=== PATIENT | male | born 1960 | race Two or more races ===

== ENCOUNTER 2024-07-01 09:14 | Emergency (ER) | payer BC, SELFPAY ==
--- NOTE | 2024-07-01 09:32 | XR_ITS ---
Examination: CT brain head without contrast. 2-D sagittal coronal reconstructions Date and time of exam:July 01, 2024 0943 hours INDICATIONS: Onset generalized head pain dizziness vertigo today CTDI: vol (mGy):40.9 DLP: (mGycm):1029 Technique: Multiple CT axial sections of the brain have been obtained, 5 mm slice thickness. Contrast has not been administered. 2-D sagittal, coronal reconstructions have been obtained Low dose protocols were performed. One or more of the following dose reduction techniques were used; automated exposure control, adjustment of the mA and/or KV according to patient size, use of iterative reconstruction technique. Findings: No significant ventricular enlargement. Intra-axial or extra-axial hemorrhage density is not seen. No mass effect or midline shift Basal cisterns are not remarkable. Fourth ventricle is midline. Cranial vault intact. Acute left maxillary sinusitis Impression: Negative for acute hemorrhage, mass effect or midline shift As clinically warranted, brain MRI follow-up would best assess for acute ischemic change
--- NOTE | 2024-07-01 09:32 | PD.EDRME ---
Rapid Medical Screening Exam RME Arrival date/time: 07/01/24 09:14 64-year-old male presents to the emergency department complains of headache and shoulder pain radiating down his left arm Chief Complaint: General Adult/Misc Complain Time Seen by Provider: 07/01/24 09:20
[2024-07-01 09:38] VITALS: BP 149/96; PULSE 65; RESP 15; TEMP 36.4; O2SAT 96; BMI 34.3
[2024-07-01 10:28] LABS: Basophils # (Auto) 0.1 Thou/mm3 (0.0-0.2); Basophils % (Auto) 1 % (0-2.5); Eosinophils # (Auto) 0.3 Thou/mm3 (0.0-0.5); Eosinophils % (Auto) 3 % (0-10); Hematocrit 47.6 % (41.0-53.0); Hemoglobin 15.9 g/dL (13.5-16.0); Immature Granulocytes % (Auto) 0 % (0-0); Immature Granulocytes Auto 0.03 Thou/mm3 (0.00-0.00); Lymphocytes # (Auto) 2.6 Thou/mm3 (1.0-4.8); Lymphocytes % (Auto) 34 % (10-50); Mean Corpuscular HGB Conc 33.4 g/dl (31.0-37.0); Mean Corpuscular Hemoglobin 29.2 pg (25.0-35.0); Mean Corpuscular Volume 88 fL (80-100); Monocytes # (Auto) 0.5 Thou/mm3 (0.0-0.8); Monocytes % (Auto) 6 % (0-12); Neutrophils # (Auto) 4.2 Thou/mm3 (1.8-7.7); Neutrophils % (Auto) 56 % (37-80); Nucleated Red Blood Cell % 0 /100 WBC (0); Platelet Count 218 Thou/mm3 (140-440); RDW Standard Deviation 39.3 fL (35.1-43.9); Red Blood Count 5.44 Miln/mm3 (4.50-5.90); White Blood Count 7.6 Thou/mm3 (3.8-10.6)
[2024-07-01 10:52] LABS: Alanine Aminotransferase 37 U/L (10-49); Albumin, Serum 4.8 gm/dL (3.4-4.8); Albumin/Globulin Ratio 1.9 (1.2-2.2); Alkaline Phosphatase 92 U/L (46-116); Anion Gap 4 (7-16); Aspartate Amino Transferase 43 U/L (0-34); BUN/Creatinine Ratio 11 Ratio (12-20); Bilirubin,Total 0.8 mg/dL (0.3-1.2); Blood Urea Nitrogen 12 mg/dL (9-23); Calcium 9.8 mg/dL (8.3-10.6); Calcium (Corrected) 9.8 mg/dL (8.5-10.1); Carbon Dioxide 27.5 mMol/L (20.0-31.0); Chloride 107 mMol/L (98-107); Creatinine (Component) 1.1 mg/dL (0.6-1.3); Estimated Creatinine Clearance 87.4 mL/min (>60); Globulin 2.5 gm/dL (2.3-3.5); Glucose 105 mg/dL (74-106); Osmolality,Calculated 275 (275-295); Potassium 4.9 mMol/L (3.4-5.1); Sodium 138 mMol/L (136-145); Total Protein 7.3 gm/dL (5.7-8.2); eGFR > 60 See Note
--- NOTE | 2024-07-01 11:38 | PD.EDADULT ---
ED General RME/HPI General Chief complaint: General Adult/Misc Complain Stated complaint: LEFT ARM PAIN x 1 WK, RIGHT SIDE HEAD PAIN x2 WKS Time Seen by Provider: 07/01/24 09:20 Arrival date/time: 07/01/24 09:14 RME / HPI RME / HPI narrative: 07/01/24 09:14 64-year-old male presents to the emergency department complains of headache and shoulder pain radiating down his left arm This section includes all my notes and documentations, including HPI, PE, and ED course.? Gary Ellsworth MD HPI: 64 year old male with history of hypertension presents to the ED for evaluation of pain to his left shoulder beginning 2 weeks ago. Described as aching in sensation, rated as moderate, that is aggravated with movements. Accompanied by a numbness sensation to the left arm beginning this morning. Patient additionally complains of pain to his head, just above the right eyebrow, that is aggravated with chewing or opening his jaw. Denies any history of similar shoulder or head pain. Denies any recent injury, falls. trauma. No other complaints. ROS: All negative except as documented in HPI. Physical Exam: General:? Alert and oriented.? No acute distress when remaining still.?? Eyes:? Conjunctivae and lids clear.? EOMI. PERRL. ENT:? No nasal congestion.? Pharynx normal. TM normal bilaterally. Neck:? Supple.? No carotid bruit. No JVD. Heart:? RRR.? Lungs:? No respiratory distress.? Good air movement.? No rhonchi, wheezing, rales.?? Abdomen:? Soft and nontender.?? Legs:? No clubbing, cyanosis, edema.? Skin:? Warm and dry.?? Neuro:? Alert and oriented X 3.?? Left Shoulder: Equivocal tenderness. Limited range of motion due to pain. I reviewed all diagnostic test results. My interpretation of the left shoulder x-rays is no acute fracture. My review of the head CT report is?no acute findings. Blood tests unremarkable. At this point, diagnoses include?left rotator cuff tear and headache. Treatment here included?ibuprofen and two Tylenol #3 and sling. Significant improvement noted. Recommended more outpatient care. Based on my best medical judgment, made decision no further evaluation or treatment indicated at this time.? Patient understands and agrees to the discharge instructions customized and printed, see below. Discharge Instructions from Dr. Ellsworth printed for you: 1. After extensive evaluation, there is no life-threatening condition. Such as stroke or brain tumor. 2. Your left shoulder pain is due to rotator cuff muscle tear, see attached handout. For help needed to heal, wear the arm sling for a week then as needed. Apply ice or heat if helpful. Ibuprofen 800 mg every 6-8 hours today and tomorrow to decrease inflammation then as needed. Tylenol with codeine for severe pain. 3. Exact cause of your headache worse with chewing was not determined. Avoid talking and eat soft foods for 3 days. 4. See a private doctor on 07/04/2024 for recheck and further care. Ask to review all test results and official radiology reports, to make sure you receive all necessary follow-ups and monitoring. Ask for help with more care not available here for your left rotator cuff tear. Such as MRI and referral to see specialist. If severe, you may need surgery. And ask for help to find the cause and treatment of your headache. 5. Seek immediate medical care with worsening or with any concerns. Instrucciones de alexandra del Dr. Ellsworth impresas para usted: 1. Despu?s de gilberto evaluaci?n exhaustiva, no hay ninguna afecci?n que ponga en peligro hwang sheridan, kevin un derrame cerebral o un tumor cerebral. 2. Hwang dolor en el hombro sejal se debe a un desgarro del m?sculo del manguito rotador; consulte el folleto adjunto. Para obtener ayuda para sanar, use el cabestrillo peyton gilberto semana y luego seg?n sea necesario. Aplique hielo o calor si resulta ?til. Ibuprofeno 800 mg cada 6 a 8 horas hoy y ma? para disminuir la inflamaci?n y luego seg?n sea necesario. Tylenol con code?na para el dolor intenso. 3. No se determin? la causa exacta de hwang dolor de yumiko que empeoraba al masticar. Evite hablar y coma alimentos blandos peyton 3 d?as. 4. Visite a un m?dico privado el 04/07/2024 para volver a controlarlo y recibir m?s atenci?n. Pida que revisen todos los resultados de las pruebas y los informes radiol?gicos oficiales para asegurarse de recibir todos los seguimientos y controles necesarios. Pida ayuda con m?s atenci?n que no est? disponible aqu? para hwang desgarro del manguito rotador sejal, kevin gilberto resonancia magn?shea y gilberto derivaci?n a un especialista. Si es grave, es posible que necesites cirug?a. Y pide ayuda para encontrar la causa y el tratamiento de tu dolor de yumiko. 5. Busca atenci?n m?dica inmediata si el dolor empeora o si tienes alguna inquietud. Related Data Home Medications ?Medication ?Instructions ?Recorded ?Confirmed lisinopril 20 mg tablet 20 mg PO QDAY 06/28/19 04/04/21 omega-3 fatty acids 500 mg capsule 500 mg PO QDAY 04/04/21 04/04/21 Previous Rx's ?Medication ?Instructions ?Recorded acetaminophen 300 mg-codeine 30 mg 2 tab PO TID PRN pain #20 tabs 07/01/24 tablet acetaminophen 300 mg-codeine 30 mg 2 tab PO TID PRN pain #20 tabs 07/01/24 tablet ibuprofen 800 mg tablet 800 mg PO Q8H PRN pain #30 tabs 07/01/24 Allergies Allergy/AdvReac Type Severity Reaction Status Date / Time No Known Allergies Allergy Verified 07/01/24 09:19 Review of Systems Review of Systems Systems Reviewed: All systems reviewed, normal except as documented Past Medical History Past Medical History CARDIAC: Positive Cardiac Disorders and Hypertension ENT: Positive Cataracts OTHER HISTORY: Positive Shingles and Measles Family History FAMILY HISTORY: Positive Family Cardiac Disorders (FATHER (CVA),MOTHER (HTN)) and Family Cancer (FATHER (PROSTATE)) Surgical History SURGICAL: Positive Nose Surgery; Negative Cardiac Surgery, Pacemaker, Endocrine Surgery or Abdominal Surgery Social History SMOKING STATUS: Heavy (> 1 pack/day) ED Exam Narrative Physical exam: As noted in HPI Course Quality Measures none Orders Category Date Time Status sling [Splint / Immobilizer] STAT Care 07/01/24 11:[address] head/brain wo con Stat Exams 07/01/24 09:32 Completed XR shoulder LT min 2V Stat Exams 07/01/24 11:41 Completed CBC Stat Lab 07/01/24 10:03 Completed CMP [Comprehensive Metabolic Panel] Stat Lab 07/01/24 10:03 Completed ACETAMINOPHEN w/COD 300-30 [Tylenol w/Cod #3] Med 07/01/24 11:41 Discontinued 2 tab PO X1 ONE Ibuprofen Tab [Motrin Tab] Med 07/01/24 11:41 Discontinued 800 mg PO X1 ONE Vital Signs Vital signs: Vital Signs Temperature 97.6 F 07/01/24 09:38 Pulse Rate 65 07/01/24 09:38 Respiratory Rate 15 07/01/24 09:38 Blood Pressure 149/96 H 07/01/24 09:38 Pulse Oximetry (%) 96 07/01/24 09:38 Oxygen Delivery Method Room Air 07/01/24 09:38 Pulse ox is 96% on room air which is adequate. [facility] Patient data External records reviewed:: [facility] previous records (I reviewed H&P on 04/04/2021) Clinical information provided by:: patient and spouse Social determinants that could affect healthcare access:: none Patient has the following chronic illnesses:: Hypertension How is presenting disease/condition affected by chronic disease/condition?: uneffected by Evaluation data The following diagnostics were reviewed and interpreted by me:: lab results and radiology exam(s) Lab and/or radiology exams considered but not ordered:: None Interpretation Summary: Left rotator cuff tear and headache. Medications Medications considered but not ordered:: None Medication administrations:: Medication Administration History Discontinued Medications Acetaminophen/Codeine Phosphate (Acetaminophen W/Cod 300-30 Tablet) 2 tab PO X1 ONE Stop: 07/01/24 11:42 Last Admin: 07/01/24 12:17 Dose: 2 tab Documented By: ED Ibuprofen (Ibuprofen Tab 400 Mg Tablet) 800 mg PO X1 ONE Stop: 07/01/24 11:42 Last Admin: 07/01/24 12:16 Dose: 800 mg Documented By: ED Patient given Tylenol with codeine and Ibuprofen Consultations Consultation(s) initiated? (list below): No Diagnosis Differential Diagnosis ED Complaint MDM: Rotator cuff tear, shoulder dislocation, headache, ICH, CVA Most likely diagnosis given after review of the tests above:: Left rotator cuff tear Headache Admission Indicated Admission indicated?: not indicated Explain why admission is indicated or not indicated:: Symptoms improved, does not meet admission criteria Admission Request Was there a request for admission?: No Disposition Plan Disposition Plan: Discharge Discharge Attestation Discharge Attestation: The patient and all family members were given an opportunity to ask questions and understood the discharge instructions. Discharge instructions specifically effects, indications for sooner follow up or return to the emergency department, and the expected course of current diagnosis. Patient condition: Stable Medical Decision Making Differential Diagnosis Differential Diagnosis: Rotator cuff tear, shoulder dislocation, headache, ICH, CVA Lab Data 07/01/24 10:03 07/01/24 10:03 Labs: Lab Results 07/01/24 Range/Units 10:03 WBC 7.6 (3.8-10.6) Thou/mm3 RBC 5.44 (4.50-5.90) Miln/mm3 Hgb 15.9 (13.5-16.0) g/dL Hct 47.6 (41.0-53.0) % MCV 88 (80-100) fL MCH 29.2 (25.0-35.0) pg MCHC 33.4 (31.0-37.0) g/dl RDW Std Deviation 39.3 (35.1-43.9) fL Plt Count 218 (140-440) Thou/mm3 Neut % (Auto) 56 (37-80) % Lymph % (Auto) 34 (10-50) % Hays % (Auto) 6 (0-12) % Eos % (Auto) 3 (0-10) % Baso % (Auto) 1 (0-2.5) % Neut # (Auto) 4.2 (1.8-7.7) Thou/mm3 Lymph # (Auto) 2.6 (1.0-4.8) Thou/mm3 Hays # (Auto) 0.5 (0.0-0.8) Thou/mm3 Eos # (Auto) 0.3 (0.0-0.5) Thou/mm3 Baso # (Auto) 0.1 (0.0-0.2) Thou/mm3 Immature Gran # (Auto) 0.03 H (0.00-0.00) Thou/mm3 Absolute Nucleated RBC 0.00 (0.00-0.00) Thou/mm3 Immature Gran % 0 (0-0) % Nucleated RBC % 0 (0) /100 WBC Sodium 138 (136-145) mMol/L Potassium 4.9 (3.4-5.1) mMol/L Chloride 107 (98-107) mMol/L Carbon Dioxide 27.5 (20.0-31.0) mMol/L Anion Gap 4 L (7-16) BUN 12 (9-23) mg/dL Creatinine 1.1 (0.6-1.3) mg/dL Estim Creat Clear Calc 87.4 (>60) mL/min eGFR > 60 (60 - ) See Note BUN/Creatinine Ratio 11 L (12-20) Ratio Glucose 105 (74-106) mg/dL Calculated Osmolality 275 (275-295) Calcium 9.8 (8.3-10.6) mg/dL Corrected Calcium 9.8 (8.5-10.1) mg/dL Total Bilirubin 0.8 (0.3-1.2) mg/dL AST 43 H (0-34) U/L ALT 37 (10-49) U/L Alkaline Phosphatase 92 (46-116) U/L Total Protein 7.3 (5.7-8.2) gm/dL Albumin 4.8 (3.4-4.8) gm/dL Globulin 2.5 (2.3-3.5) gm/dL Albumin/Globulin Ratio 1.9 (1.2-2.2) Discharge Plan Plan Patient Disposition: HOME (Self Care) Prescriptions/Referrals Prescriptions/Med Rec: New ibuprofen 800 mg tablet 800 mg PO Q8H PRN (Reason: pain) Qty: 30 0RF acetaminophen-codeine 300-30 mg tablet 2 tab PO TID MDD 6 PRN (Reason: pain) Qty: 20 0RF acetaminophen-codeine 300-30 mg tablet 2 tab PO TID MDD 6 PRN (Reason: pain) Qty: 20 0RF No Action lisinopril 20 mg Tablet 20 mg PO QDAY omega-3 fatty acids 500 mg Capsule 500 mg PO QDAY Referrals: Saman Donahue MD [Primary Care Provider] - In 1 week Problem List Clinical Impression: Left rotator cuff tear, Headache Patient/Caregiver Discharge Instructions Education Materials: ED Rotator Cuff Tear Additional Instructions: Discharge Instructions from Dr. Ellsworth printed for you: 1. After extensive evaluation, there is no life-threatening condition. Such as stroke or brain tumor. 2. Your left shoulder pain is due to rotator cuff muscle tear, see attached handout. For help needed to heal, wear the arm sling for a week then as needed. Apply ice or heat if helpful. Ibuprofen 800 mg every 6-8 hours today and tomorrow to decrease inflammation then as needed. Tylenol with codeine for severe pain. 3. Exact cause of your headache worse with chewing was not determined. Avoid talking and eat soft foods for 3 days. 4. See a private doctor on 07/04/2024 for recheck and further care. Ask to review all test results and official radiology reports, to make sure you receive all necessary follow-ups and monitoring. Ask for help with more care not available here for your left rotator cuff tear. Such as MRI and referral to see specialist. If severe, you may need surgery. And ask for help to find the cause and treatment of your headache. 5. Seek immediate medical care with worsening or with any concerns. Instrucciones de alexandra del Dr. Ellsworth impresas para usted: 1. Despu?s de gilberto evaluaci?n exhaustiva, no hay ninguna afecci?n que ponga en peligro hwang sheridan, kevin un derrame cerebral o un tumor cerebral. 2. Hwang dolor en el hombro sejal se debe a un desgarro del m?sculo del manguito rotador; consulte el folleto adjunto. Para obtener ayuda para sanar, use el cabestrillo peyton gilberto semana y luego seg?n sea necesario. Aplique hielo o calor si resulta ?til. Ibuprofeno 800 mg cada 6 a 8 horas hoy y ma? para disminuir la inflamaci?n y luego seg?n sea necesario. Tylenol con code?na para el dolor intenso. 3. No se determin? la causa exacta de hwang dolor de yumiko que empeoraba al masticar. Evite hablar y coma alimentos blandos peyton 3 d?as. 4. Visite a un m?dico privado el 04/07/2024 para volver a controlarlo y recibir m?s atenci?n. Pida que revisen todos los resultados de las pruebas y los informes radiol?gicos oficiales para asegurarse de recibir todos los seguimientos y controles necesarios. Pida ayuda con m?s atenci?n que no est? disponible aqu? para hwang desgarro del manguito rotador sejal, kevin gilberto resonancia magn?shea y gilberto derivaci?n a un especialista. Si es grave, es posible que necesites cirug?a. Y pide ayuda para encontrar la causa y el tratamiento de tu dolor de yumiko. 5. Busca atenci?n m?dica inmediata si el dolor empeora o si tienes alguna inquietud. Print Language: Lao Stand Alone Forms: [facility] Award Info., Patient Portal Info Letter
--- NOTE | 2024-07-01 11:41 | XR_ITS ---
Examination: Shoulder,left, 3 views Technique: Shoulder AP internal rotation, AP external rotation, Y view shoulder, 3 views Exam date and time :July 01, 1999 2550 hours INDICATIONS: Shoulder pain beginning 2 weeks ago. FINDINGS: Moderate osteopenia Moderate narrowing glenohumeral joint No shoulder fracture or dislocation Moderate osteoarthritis acromioclavicular joint IMPRESSION: Moderate narrowing glenohumeral joint Moderate osteoarthritis acromioclavicular joint
[2024-07-01] MEDS: IBUPROFEN TAB 400 MG TABLET 800 MG PO (12:16)
[2024-07-01] MEDS: ACETAMINOPHEN w/COD 300-30 TABLET 2 TAB PO (12:17)
== END 2024-07-01 13:03 | disposition home or self-care (01) ==
PROVIDERS: Nurse Practitioner Primary Care; Emergency Provider Emergency Medicine; PCP Family Medicine
DX: M75.102 Unspecified rotator cuff tear or rupture of left shoulder, not specified as traumatic (principal); R51.9 Headache, unspecified; R42 Dizziness and giddiness
CPT/HCPCS: 36415; 70450; 73030; 80053; 85025; 99284; A4565; A9270

== ENCOUNTER 2024-12-21 06:45 | Emergency (ER) | payer BC, SELFPAY ==
[2024-12-21 06:46] VITALS: BP 143/102; PULSE 100; RESP 17; TEMP 36.7; O2SAT 97
--- NOTE | 2024-12-21 07:02 | EDNOTE_ITS ---
<Statement entered by Magali Mason MD - 12/30/24 19:27> As co-signing physician, I was present and available for consult prn. I concur with the plan and care as documented by the midlevel provider. ED Back Injury Pain RME/HPI General Chief Complaint: Back Pain/Injury Stated Complaint: LOWER BACK PAIN Time Seen by Provider: 12/21/24 06:55 Source: patient Arrival date/time: 12/21/24 06:45 64-year-old male with no known medical history presents to the emergency room with a chief complaint of pain to his coccyx and lower back after a ground-level fall that occurred 2 days ago Mode of arrival: ambulatory Limitations: no limitations Related Data Home Medications ?Medication ?Instructions ?Recorded ?Confirmed lisinopril 20 mg tablet 20 mg PO QDAY 06/28/1904/04 omega-3 fatty acids 500 mg capsule 500 mg PO QDAY 03/2204/04/21 Previous Rx's ?Medication ?Instructions ?Recorded acetaminophen 300 mg-codeine 30 mg 2 tab PO TID PRN pa in #20 tabs 07/01/24 tablet acetaminophen 300 mg-codeine 30 mg 2 tab PO TID PRN pa in #20 tabs 07/01/24 tablet ibuprofen 800 mg tablet 800 mg PO Q8H PRN pain #30 t abs 07/01/24 Allergies Allergy/AdvReac Type Severity Reaction Status Date / Time No Known Allergies Allergy Verified 07/01/24 09:19 Review of Systems Review of Systems Systems Reviewed: All systems reviewed, normal except as documented Constitutional Constitutional: Reports system reviewed and no additional complaints, except as documented, Denies fatigue, Denies fever(s), Denies headache(s) and Denies weakness Eyes Eyes: Reports system reviewed and no additional complaints, except as documented, Denies blurry vision and Denies change in vision ENT Ears, Nose, Mouth, and Throat: Reports system reviewed and no additional complaints, except as documented, Denies otalgia, Denies headache(s), Denies nasal congestion, Denies throat swelling and Denies vertigo Cardiovascular Cardiovascular: Reports system reviewed and no additional complaints, except as documented, Denies chest pain, Denies dyspnea and Denies dyspnea on exertion Respiratory Respiratory: Reports system reviewed and no additional complaints, except as documented, Denies chest congestion, Denies cough, Denies dyspnea, Denies dyspnea on exertion and Denies wheezing Gastrointestinal Gastrointestinal: Reports system reviewed and no additional complaints, except as documented, Denies abdominal pain, Denies cramping, Denies nausea and Denies vomiting Genitourinary Genitourinary: Reports system reviewed and no additional complaints, except as documented, Denies dysuria and Denies hematuria Musculoskeletal Musculoskeletal: Reports system reviewed and no additional complaints, except as documented and Reports back pain Integumentary/Breasts Skin/Breast: Reports system reviewed and no additional complaints, except as documented and Denies wounds Neurologic Neurologic: Reports system reviewed and no additional complaints, except as documented, Denies confusion, Denies headache(s), Denies lack of coordination, Denies vertigo and Denies weakness Psychiatric Psychiatric: Reports system reviewed and no additional complaints, except as documented, Denies anxiety, Denies confusion, Denies depression, Denies paranoia, Denies suicidal ideation and Denies tactile hallucinations Endocrine Endocrine: Reports system reviewed and no additional complaints, except as documented and Denies fatigue Hematologic/Lymphatic Hematologic/Lymphatic: Reports system reviewed and no additional complaints, except as documented and Denies lymphadenopathy Allergic/Immunologic Allergic/Immunologic: Reports system reviewed and no additional complaints, except as documented, Denies throat swelling, Denies urticaria and Denies wheezing Past Medical History Past Medical History NEUROLOGIC: Negative Neurological Disorders or Seizures CARDIAC: Positive Cardiac Disorders and Hypertension; Negative Congestive Heart Failure, Edema or Cellulitis RESPIRATORY: Negative Chronic Obstructive Pulmonary Disease (COPD), Pneumonia, Tuberculosis or Sleep Apnea GASTROINTESTINAL: Negative Gastrointestinal Disorders or Hepatitis GENITOURINARY: Negative Genitourinary Disorders or Renal Disease MUSCULOSKELETAL: Negative Musculoskeletal Disorders ENT: Positive Cataracts ENDOCRINE: Negative Endocrine Disorders, Diabetes Mellitus Type 1 or Diabetes Mellitus Type 2 HEMATOLOGIC: Negative Blood Disorders OTHER HISTORY: Positive Shingles and Measles; Negative Hospitalization, Autoimmune Disease, Falls, Blood Transfusions, Blood Transfusion Reaction, Anesthesia Reactions, Chemotherapy, Radiation Therapy, MRSA, Chicken Pox, Mumps or Cancer Family History FAMILY HISTORY: Positive Family Cardiac Disorders (FATHER (CVA),MOTHER (HTN)) and Family Cancer (FATHER (PROSTATE)); Negative Family Psychiatric Problems, Family Respiratory Disorders, Family Gastrointestinal Problems, Family Surgery or Family Anesthesia Reaction Surgical History SURGICAL: Positive Nose Surgery; Negative Cardiac Surgery, Pacemaker, Endocrine Surgery or Abdominal Surgery Social History SMOKING STATUS: Never smoker ED Exam General Limitations: Present no limitations General appearance: Present alert and in no apparent distress Head Head exam: Present atraumatic Eye Eye exam: Present normal appearance, PERRL and EOMI ENT ENT exam: Present normal exam, normal oropharynx and mucous membranes moist Neck Neck exam: Present normal inspection, full ROM and trachea midline Chest Chest inspection: Present normal inspection and symmetric chest wall rise Respiratory Respiratory exam: Present normal lung sounds bilaterally Cardiovascular Cardiovascular exam: Present regular rate, normal rhythm and normal heart sounds Abdominal Exam Abdominal exam: Present soft and normal bowel sounds Extremities Exam Extremities exam: Present normal inspection and full ROM Back Exam Back exam: Present normal inspection and full ROM Neurological Exam Neurological exam: Present alert, oriented X3 and CN II-XII intact Psychiatric Psychiatric exam: Present normal affect and normal mood Skin Skin exam: Present warm, dry, intact and normal color Course Quality Measures none Orders Category Date Time Status XR lumbar spine 2-3V Stat Exams 12/21/24 07:02 Completed XR sacrum coccyx min 2V Stat Exams 12/21/24 07:02 Completed HYDROcodone*/APAP 5/325 [[place] 5/325] Med 12/21/24 08:36 Discontinued 1 tab PO X1 ONE Ketorolac Inj [Toradol Inj] Med 12/21/24 07:02 Discontinued 30 mg IM X1 ONE Vital Signs Vital signs: Vital Signs Temperature 98.0 F 12/21/24 06:46 Pulse Rate 100 12/21/24 06:46 Respiratory Rate 17 12/21/24 06:46 Blood Pressure 143/102 H 12/21/24 06:46 Pulse Oximetry (%) 97 12/21/24 06:46 Back Pain / Injury MDM Narrative MDM Narrative:: 64-year-old male with no known medical history presents to the emergency room with a chief complaint of pain to his coccyx and lower back after a ground-level fall that occurred 2 days ago Patient is hemodynamically stable and in no apparent distress Physical examination shows tenderness and pain to the sacrum and coccyx area of the patient's tailbone. Patient states he has difficulty walking and pain and tenderness when he sits X-ray were completed and were negative for any acute fractures Patient was discharged and educated to follow-up with primary care provider in the next 24 to 48 hours and return to the emergency room for any evidence of worsening signs or symptoms Patient data External records reviewed:: [facility] previous records Clinical information provided by:: patient Social determinants that could affect healthcare access:: none Patient has the following chronic illnesses:: No chronic illness How is presenting disease/condition affected by chronic disease/condition?: no chronic disease Evaluation data The following diagnostics were reviewed and interpreted by me:: lab results and radiology exam(s) Lab and/or radiology exams considered but not ordered:: Labs and radiology exams considered and ordered Interpretation Summary: Coccyx x-ray- Medications / Prescriptions Medications or Prescriptions considered but not ordered:: Medication given Medication administrations:: Medication Administration History Discontinued Medications Hydrocodone Bitart/Acetaminophen (Hydrocodone/Apap 5/325 Tablet) 1 tab PO X1 ON E Stop: 12/21/24 08:37 Last Admin: 12/21/24 08:44 Dose: 1 tab Documented By: GM Ketorolac Tromethamine (Ketorolac Inj 60 Mg/2 Ml Vial) 30 mg IM X1 ONE Stop: 12/21/24 07:03 Last Admin: 12/21/24 07:09 Dose: 30 mg Documented By: CVL Medication given Consultations Consultation(s) initiated? (list below): No Diagnosis Differential diagnosis back pain/injury: strain of lumbar region and other (Strain of coccyx region) Most likely diagnosis given after review of the tests above:: Strain of coccyx region Admission Indicated Admission indicated?: not indicated Admission Request Was there a request for admission?: No Disposition Plan Disposition Plan: Discharge Discharge Attestation Discharge Attestation: The patient and all family members were given an opportunity to ask questions and understood the discharge instructions. Discharge instructions specifically effects, indications for sooner follow up or return to the emergency department, and the expected course of current diagnosis. Patient condition: Stable Discharge Plan Plan Patient Disposition: HOME (Self Care) Discharge Disposition comment: Stable Prescriptions/Referrals Prescriptions/Med Rec: No Action lisinopril 20 mg Tablet 20 mg PO QDAY omega-3 fatty acids 500 mg Capsule 500 mg PO QDAY ibuprofen 800 mg tablet 800 mg PO Q8H PRN (Reason: pain) Qty: 30 0RF acetaminophen-codeine 300-30 mg tablet 2 tab PO TID MDD 6 PRN (Reason: pain) Qty: 20 0RF acetaminophen-codeine 300-30 mg tablet 2 tab PO TID MDD 6 PRN (Reason: pain) Qty: 20 0RF Referrals: Saman Donahue MD [Primary Care Provider] - In 1 week Problem List Clinical Impression: Coccyx sprain Patient/Caregiver Discharge Instructions Education Materials: ED Back Sprain/Strain Additional Instructions: Por favor, consulte con hwang m?dico de cabecera en las pr?ximas 24 a 48 horas. Se realizaron radiograf?as y dieron negativo para cualquier fractura o luxaci?n aguda. Si hay alguna evidencia de empeoramiento de los signos o s?ntomas, regrese a la rachel de emergencias inmediatamente. Print Language: Georgian Stand Alone Forms: [place] Award Info., Patient Portal Info Letter PA/INFORMATION SYSTEMS MANAGER Supervising Physician PA/INFORMATION SYSTEMS MANAGER Supervising Physician: Dr. MASON
--- NOTE | 2024-12-21 07:02 | XR_ITS ---
Examination: Lumbar spine 3 views Technique one AP lateral coned lateral lower lumbar spine 3 views Date and time: December 21, 2024 0742 hours Comparison December 15, 2010 INDICATIONS: Lower back pain after falling 2 days ago. FINDINGS: No acute lumbar fracture Grade 1 spondylolisthesis L5 on S1 Moderate disc narrowing posteriorly at the lower 3 lumbar levels IMPRESSION: No acute lumbar fracture Grade 1 spondylolisthesis L5 on S1
--- NOTE | 2024-12-21 07:02 | XR_ITS ---
Examination: Sacrum and coccyx 3 views Technique one AP inclined AP lateral sacrum and coccyx 3 views Date and time: December 21, 2024 0733 hours INDICATIONS: Patient fell 2 days ago with injury to the sacrum, sacral pain. FINDINGS: Old appearing fracture deformity fifth sacral segment No acute fracture Prominent osteopenia IMPRESSION: No acute fracture
[2024-12-21] MEDS: KETOROLAC INJ 60 MG/2 ML VIAL 30 MG IM (07:09)
--- NOTE | 2024-12-21 08:32 | PC.NURSE ---
INFORMED NIGEL WAGNER RN OF PT'S UNRELIEVED PAIN. SHE WILL INFORM PROVIDER.
[2024-12-21] MEDS: HYDROcodone/APAP 5/325 TABLET 1 TAB PO (08:44)
== END 2024-12-21 10:26 | disposition home or self-care (01) ==
PROVIDERS: Emergency Provider Emergency Medicine; PCP Family Medicine
DX: S33.8XXA Sprain of other parts of lumbar spine and pelvis, initial encounter (principal); W18.30XA Fall on same level, unspecified, initial encounter
CPT/HCPCS: 72100; 72220; 96372; 99283; J1885; A9270